=== PATIENT | female | born 1955 | race Two or more races ===

== ENCOUNTER 2017-08-24 14:41 | Day surgery (SDC) | payer OTHER ==
[2017-08-24] VITALS (11 sets, daily range): BP systolic 95–126; BP diastolic 55–75; PULSE 58–70; RESP 15–29; Ht 157.5 cm; Wt 65.2 kg
[~2017-08-24] VITALS: Ht 157.5 cm; Wt 65.2 kg
[2017-08-24] MEDS ORDERED: KETOROLAC 30 MG INJ ONE (17:31)
[2017-08-24] MEDS ORDERED: CEFAZOLIN 1 GM INJ ONE (17:31)
[2017-08-24] MEDS ORDERED: MIDAZOLAM 1 MG/ML 2 ML INJ ONE (17:31)
[2017-08-24] MEDS ORDERED: PROPOFOL 20 ML ONE (17:31)
[2017-08-24] MEDS ORDERED: FENTAnyl 50 MCG/ML VIAL ONE (17:31)
[2017-08-24] MEDS ORDERED: METOCLOPRAMIDE 10 MG INJ ONE (17:32)
[2017-08-24] MEDS ORDERED: CEFAZOLIN 2 GM/50 ML (PMX) 50 ML IVPB SCH (18:00)
[2017-08-24] MEDS ORDERED: LACTATED RINGER'S 1,000 ML IV* SCH (18:00)
[2017-08-24] MEDS ORDERED: ONDANSETRON 4 MG INJ IV PRN (18:30)
[2017-08-24] MEDS ORDERED: HYDROmorphONE (0.2 MG/ML) 10ML SYG IV PRN ×3 (18:30)
--- NOTE | 2017-08-24 20:55 | OPR ---
DATE OF OPERATION: 08/24/2017 PROCEDURE: Examination under anesthesia, uterine hysteroscopy, and dilation with curettage. PREOPERATIVE DIAGNOSIS: Persistent dysfunctional uterine bleeding, not responding to hormonal thera py, and anemia. POSTOPERATIVE DIAGNOSIS: Enlarged uterus, about 8 week size, pelvic adhesions, lack of uterine desc ent. ANESTHESIA: General by Dr. Willow Juarez. COMPLICATIONS: Zero. DRAINS: Zero. PACKING: Zero. PROCEDURE IN DETAIL: After the patient was taken to the operating room and placed in supine positio n, anesthesia was given by anesthesiologist and she was placed in dorsal lithotomy position. Straig ht catheter was placed by RN and bladder was drained. After that she was prepped and draped in usua l manner. Examination under anesthesia revealed multiparous outlet and vagina. Cervix was closed. Uterus was about 8 weeks [address] was way above the normal location. No adnexal masses. After insertio n of the weighted speculum, cervix was grasped by tenaculum, but there was lack of descent. However , cervix was dilated by a Lynn dilator and was found to be 9 cm, and hysteroscopy was done, which r evealed no pathology except some hanging tissue. After hysteroscopy was finished, endocervix was cu reted by #0 curette and uterine cavity was systematically curetted by #1 and #2 curettes. Minimal a mount of tissue was obtained. At the end, uterine cavity was explored by polyp forceps. No tissue was obtained. Cavity all together was much larger than normal and uterine cavity. All the instrume nts were removed. Direct vaginal exam was done, which revealed above finding. Estimated blood loss was very minimal. Complications were zero. The patient tolerated the procedure well. The patient went to recovery room in stable condition. Dictated By: JAMEL GARZA MD PM/MARYAN Conf#: [id number] DID#: [id number]
--- NOTE | 2017-08-27 16:08 | RADRPT ---
Vent Rate: 61 bpm RR Interval: 0 msec CO Interval: 166 msec QRS Duration: 78 msec QT Interval: 430 msec QTC Interval: 432 msec P-R-T [place]: 50 - 67 - 45 degrees Normal sinus rhythm Normal ECG Electronically Signed By: Nino Santoyo [id number]
== END 2017-08-24 19:35 | disposition home or self-care (01) ==
LOC: SDS 14:41
PROVIDERS: ATTEND Obstetrics & Gynecology
DX: N85.2 Hypertrophy of uterus (principal); N93.8 Other specified abnormal uterine and vaginal bleeding; E03.9 Hypothyroidism, unspecified
CPT/HCPCS: 58558; 86850; 86900; 86901; 88305; 93005; J0690; J1170; J1885; J2250; J2405; J2765; J3010; Z7512; Z7610